=== PATIENT | male | born 1970 | race Caucasian/White ===

== ENCOUNTER 2019-04-20 16:14 | Emergency (ER) | payer OTHER ==
[2019-04-20] MEDS ORDERED: Lidocaine 1% PF 5 ML VIAL ONE (16:19)
[2019-04-20] MEDS ORDERED: Adacel (T-DAP) 0.5 ML SYRINGE ONE (16:26)
[2019-04-20] MEDS ORDERED: Bupivacaine 0.5% 10 ML VIAL ONE (16:29)
--- NOTE | 2019-04-20 16:46 | RAD ---
Left middle finger 3 views HISTORY: Finger injury. FINDINGS: Joint spaces are preserved. Mild osteophytosis. Soft tissue laceration at the tuft distal p halanx. No acute fracture, dislocation, or radiopaque foreign bodies are apparent. IMPRESSION: Soft tissue laceration. No acute osseous abnormalities or radiopaque foreign bodies.
[2019-04-20] MEDS ORDERED: Bacitracin 1 PK ONE (17:30)
== END 2019-04-20 17:47 | disposition home or self-care (01) ==
LOC: SCSER 16:14
DX: S61.213A Laceration without foreign body of left middle finger without damage to nail, initial encounter (principal); F41.9 Anxiety disorder, unspecified; W45.8XXA Other foreign body or object entering through skin, initial encounter
CPT/HCPCS: 12002; 90715; J2001; J3490

== ENCOUNTER 2019-11-17 12:35 | Outpatient (CLI) | payer OTHER ==
--- NOTE | 2019-11-17 14:13 | MRI ---
MRI cervical spine noncontrast: DATE: 11/17/2019 HISTORY: 48-year-old male with cervicalgia and cervical radiculopathy FINDINGS: Slight reversal of curvature. No major subluxation. Multilevel mostly mild facet DJD bilaterally. Dis c space narrowing is mild anteriorly at C5-6, and diffusely mild to moderate at C6-7. The rest of the disc spaces are maintained. Cervical spinal cord is normal in size and signal. 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 This is exacerbated by cervical spondylosis as described below. All axial images are degraded by patient phillip foster. C1-2: No central stenosis. C2-3: Mild to moderate decrease in AP diameter of spinal canal due to short pedicles. No narrowing of spinal canal in transverse dimension. No significant neural foraminal stenosis. C3-4: Spinal canal is very similar to the C2-C3 level. Small bilateral uncinate process osteophytes e ncroach upon bilateral neural foramina causing mild to moderate bilateral neural foraminal stenosis. C4-5: Mild to moderate central spinal canal stenosis mostly on developmental basis. Small right uncin ate process osteophytes cause mild to moderate right neural foraminal stenosis. Asymmetrically moderate-sized left uncinate process osteophytes result in somewhat severe left neural foraminal sten osis. C5-6: Broad-based disc-osteophytic bar complex encroaches upon the anterior aspect of the spinal beck l, causing mild to moderate central spinal canal stenosis. Moderate to large bilateral uncinate process osteophytes cause somewhat severe bilateral neural foraminal stenosis. C6-7: Broad-based disc-osteophytic bar complex encroaches upon the anterior aspect of the spinal beck l, causing mild to moderate central spinal canal stenosis. Moderate to large bilateral uncinate process osteophytes cause severe bilateral neural foraminal stenosis. C7-T1: No central stenosis. Mild to moderate bilateral facet DJD. Mild right neural foraminal stenosi s. Mild to moderate left neural foraminal stenosis. IMPRESSION: 1. Mostly mild cervical spondylosis, including low-grade degenerative disc disease at C5-6 and C6-7. 2. High-grade neural foraminal stenosis, including severe, including bilaterally at C5-6 and C6-7, an d on the left at C4-5.
== END 2019-11-17 12:36 | disposition home or self-care (01) ==
LOC: TBSIIMAG 12:35
PROVIDERS: ATTEND Neurological Surgery
DX: M47.22 Other spondylosis with radiculopathy, cervical region (principal); M50.122 Cervical disc disorder at C5-C6 level with radiculopathy; M48.02 Spinal stenosis, cervical region
CPT/HCPCS: 72141

== ENCOUNTER 2023-09-21 11:48 | Outpatient (CLI) | payer BC | END 2023-09-21 11:49 | disposition home or self-care (01) | LOC: SCSRAD 11:48 | PROVIDERS: ATTEND Nurse Practitioner Family | DX: R05.3 Chronic cough (principal) | CPT/HCPCS: 71046 ==

== ENCOUNTER 2025-07-25 00:09 | Emergency (ER) | payer BC ==
[2025-07-25 00:42] LABS: #Basophils 0.10 10x3/uL (0.0-0.2); #Eosinophils 0.20 10x3/uL (0.0-0.7); #Monocytes 0.43 10x3/uL (0.11-0.59); #Neutrophils 5.55 10x3/uL (1.40-6.50); %Basophils 1.3 % (0.0-1.0); %Eosinophils 2.6 % (0.0-10.0); %Lymphocytes 18.1 % (21.0-51.0); %Monocytes 5.6 % (0.0-10.0); %Neutrophils 72.1 % (42.0-75.0); Hematocrit 49.5 % (42.0-52.0); Hemoglobin 17.0 g/dL (14.0-18.0); Mean Corpuscular Hemoglobin 28.9 pg (27.0-31.0); Mean Corpuscular Volume 84.0 fL (78.0-98.0); Platelet Count 219 10x3/uL (130-400); Red Blood Cell (RBC) Count 5.89 mill/uL (4.70-6.10); White Blood Cell (WBC) Count 7.69 10x3/uL (4.8-10.8)
[2025-07-25 00:57] LABS: ALT (SGPT) 19 U/L (Less than 45); AST (SGOT) 21 U/L (11-34); Albumin 4.3 g/dL (3.1-4.5); Alkaline Phosphatase 112 U/L (40-110); Anion Gap 15 mmol/L (10-20); BUN (Urea Nitrogen) 16 mg/dL (8.4-25.7); Bilirubin, Total 0.9 mg/dL (0.3-1.2); Calc. Creatinine Clearance 0 mL/min (70-130); Calcium 9.4 mg/dL (7.8-10.44); Carbon Dioxide 21 mmol/L (22-29); Chloride 107 mmol/L (98-107); Globulin 2.9 g/dL (2.4-3.5); Glucose 105 mg/dL (70-105); Potassium 3.4 mmol/L (3.5-5.1); Sodium 140 mmol/L (136-145)
[2025-07-25 01:05] LABS: INR-International Normal Ratio 1.1; PTT 27.0 sec (22.9-36.1); Prothrombin Time 14.5 sec (12.0-14.7)
[2025-07-25] MEDS ORDERED: Iopamidol 370 76% 100 ML VIAL ONE (12:16)
== END 2025-07-25 02:45 | disposition home or self-care (01) ==
LOC: ERS 00:09
DX: S00.01XA Abrasion of scalp, initial encounter (principal); S50.812A Abrasion of left forearm, initial encounter; M54.50 Low back pain, unspecified; R91.1 Solitary pulmonary nodule; I10 Essential (primary) hypertension; Z79.899 Other long term (current) drug therapy; V47.5XXA Car driver injured in collision with fixed or stationary object in traffic accident, initial encounter
CPT/HCPCS: 70450; 71260; 72125; 74177; 80053; 85025; 85610; 85730